=== PATIENT | female | born 1985 | race Caucasian/White ===

== ENCOUNTER 2022-11-15 00:11 | Inpatient (IN) | payer OTHER, SELFPAY ==
[2022-11-15 00:25] VITALS: BP 122/78; PULSE 88; RESP 18; TEMP 36.2; O2SAT 100
[2022-11-15 00:38] VITALS: BMI 22.7
[2022-11-15] MEDS: traZODone HCL 50 MG TABLET PO (00:47)
[2022-11-15] MEDS: hydrOXYzine HCL 25 MG TABLET PO ×2 (00:47→09:21)
[2022-11-15] MEDS: Acetaminophen 325 MG TABLET 650 MG PO ×2 (00:48→22:02)
[2022-11-15] MEDS: Ondansetron ODT 4 MG TAB.RAPDIS TRANSLINGU (01:04)
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
[2022-11-15] MEDS: LORazepam 1 MG TABLET 2 MG PO (09:44)
[2022-11-15 09:46] VITALS: BP 118/65; PULSE 90; RESP 16
[2022-11-15] MEDS: Amphetamine Mixed Salts 10 MG TABLET 30 MG PO ×3 (10:04→20:14)
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
[2022-11-15] MEDS: Cyclobenzaprine HCl 5 MG TABLET PO ×2 (14:38→20:00)
[2022-11-15] MEDS: Thiamine HCL 100 MG TABLET PO (14:38)
[2022-11-15] MEDS: traZODone HCL 100 MG TABLET PO (20:00)
[2022-11-15 20:19] VITALS: BP 132/88; PULSE 109; RESP 16; TEMP 36.4; O2SAT 98
[2022-11-15] MEDS: diphenhydrAMINE HCL 25 MG CAPSULE 50 MG PO (22:01)
[2022-11-15] MEDS: LORazepam 1 MG TABLET PO (22:59)
[2022-11-15] MEDS: HaloperidoL 1 MG TABLET 2 MG PO (22:59)
--- NOTE | 2022-11-16 | ECG_ITS ---
Test Reason : RAPID RESPONCE Blood Pressure : / mmHG Vent. Rate : 104 BPM Atrial Rate : 104 BPM P-R Int : 140 ms QRS Dur : 078 ms QT Int : 346 ms P-R-T Axes : 075 084 063 degrees QTc Int : 454 ms Sinus tachycardia Nonspecific ST abnormality Abnormal ECG No previous ECGs available Referred By: Ashtyn Salas Electronically Signed By:RODRIGUEZ SCHROEDER
[2022-11-16] MEDS: hydrOXYzine HCL 25 MG TABLET PO ×2 (06:16→21:48)
[2022-11-16 07:00] VITALS: BMI 22.7
[2022-11-16] MEDS: Loratadine 10 MG TABLET PO (08:00)
[2022-11-16] MEDS: Acetaminophen 325 MG TABLET 650 MG PO (08:00)
[2022-11-16] MEDS: Folic Acid 1 MG TABLET PO (08:00)
[2022-11-16] MEDS: Amphetamine Mixed Salts 10 MG TABLET 30 MG PO ×3 (08:00→16:03)
[2022-11-16] MEDS: Multivitamin TABLET 1 TAB PO (08:00)
[2022-11-16] MEDS: Naltrexone HCl 50 MG TABLET PO (08:00)
[2022-11-16] MEDS: Magnesium Oxide 400 MG TABLET PO (08:00)
[2022-11-16] MEDS: predniSONE 10 MG TABLET PO (08:00)
[2022-11-16] MEDS: Thiamine HCL 100 MG TABLET PO (08:00)
[2022-11-16] MEDS: Ondansetron ODT 8 MG TAB.RAPDIS TRANSLINGU ×2 (08:04→21:48)
[2022-11-16 08:15] VITALS: BP 117/91; PULSE 111; RESP 18; TEMP 36.3; O2SAT 95
[2022-11-16 08:58] LABS: Estimated Average Glucose 85 mg/dL; Hemoglobin A1c % 4.6 % (<6.0)
[2022-11-16 09:09] LABS: Alanine Aminotransferase 9 U/L (0-31); Albumin Level 4.5 g/dL (3.5-5.0); Alkaline Phosphatase 60 U/L (39-117); Anion Gap 15 (12-20); Aspartate Amino Transferase 14 U/L (5-31); Bilirubin Total 0.9 mg/dL (0.0-1.0); Blood Urea Nitrogen 10 mg/dL (9-16); Calcium 9.7 mg/dL (8.4-10.2); Carbon Dioxide 24 mmol/L (22-29); Chloride 103 mmol/L (96-108); Cholesterol 201 mg/dL (<200); Creatinine Clr Calc Pharmacy 105.5; Estimated Glomerular Filt Rate > 60; Glucose Fasting 77 mg/dL (60-99); HDL Cholesterol 91 mg/dL (>40); LDL Cholesterol Calculated 86 mg/dL (<100); Potassium 3.7 mmol/L (3.3-5.1); Sodium 138 mmol/L (135-145); Total Protein 7.4 g/dL (6.5-8.0); Triglycerides 121 mg/dL (<150)
[2022-11-16 09:27] LABS: Thyroid Stimulating Hormone 0.93 uIU/mL (0.32-4.0)
--- NOTE | 2022-11-16 09:31 | HE.PHANOTE ---
Pharmacy received patient own milk thistle that 08/01. I discontinued order so RN can not give the medication until pharmacy reicves a new bottle with an appropriate expiration date. Sent bottle back to floor so patient can have their purchased bottle back but RN know she should not give it.
[2022-11-16 09:37] LABS: Folate 13.4 ng/mL (> or = 4.0); Vitamin B12 350 pg/mL (200-900)
[2022-11-16] MEDS: LORazepam 1 MG TABLET PO ×2 (11:00→21:47)
--- NOTE | 2022-11-16 18:41 | P.PNPSI_ITS ---
Subjective Subjective Date of Service: 11/16/22 Reason For Visit: F33.3,F10.20,F43.10, F41.9 Subjective Notes: Conditional Voluntary Healthcare Proxy: No Guardianship: No Medical Problems Affecting Mental Status: No Interim History: Three day notice filed. I always do, in case it gets bad. Working on resources today, calling programs, agencies, attempting to set up services. Agrees to tw calling [facility] to see if she is appropriate for addiction residential care. Feeling safety in the milieu she reports. Medication Compliance: Yes Side effects from medications: No Review of Systems Acute medical concerns: No Medical Review of Systems: unchanged Mental Status Exam Mental Status Exam Patient Appearance: Appropriate Patient Orientation: Person, Place, Time and Situation Level of Consciousness: Alert Patient Behavior: Appropriate, Talkative and Good Eye Contact Mood Description: Anxious and Apprehensive Affect Description: Anxious and Apprehensive Patient Cognition Impaired: No Ability to Follow Directions: Fair Speech Pattern: Spontaneous Speech Memory Description: Intact Hallucinations: None Delusions: Not Present Perceptual Disturbances: Depersonalization and Derealization Thought Process: Goal Oriented Thought Content: positive for Circumstantial Depressive Symptoms: Increased Anxiety, Unhappiness, Thoughts of /Suicide and Low Self Esteem Judgement: Fair Diagnostics Vital Signs (24Hr): Vital Signs - 24 hr 11/15/22 20:19 11/16/22 08:15 Temperature 97.6 F 97.4 F Pulse Rate 109 H 111 H Respiratory Rate 16 18 Blood Pressure 132/88 117/91 H Pulse Oximetry 98 95 Oxygen Delivery Method Room Air Room Air BMI result Body Mass Index 22.7 Labs 11/16/22 08:17 Labs: Laboratory Results - last 48 hr 11/16/22 11/16/22 08:17 08:39 Sodium 138 Potassium 3.7 Chloride 103 Carbon Dioxide 24 Anion Gap 15 BUN 10 Creatinine 0.69 Estim Creat Clear Calc 105.5 Estimated GFR > 60 Fasting Glucose 77 Estimat Average Glucose 85 Hemoglobin A1c % 4.6 Calcium 9.7 Total Bilirubin 0.9 AST 14 ALT 9 Alkaline Phosphatase 60 Total Protein 7.4 Albumin 4.5 Triglycerides 121 Cholesterol 201 H LDL Cholesterol, Calc 86 HDL Cholesterol 91 Vitamin B12 350 Folate 13.4 TSH 0.93 Free T4 0.90 Medications Medications Current Medications Acetaminophen (Acetaminophen 325 Mg Tablet) 650 mg PO Q6H PRN PRN Reason: Headache/Pain Mild Scale (1-3) Last Admin: 11/16/22 08:00 Dose: 650 mg Al Hydroxide/Mg Hydroxide (Magnesium Hydrox/Alum Hydrox 30 Ml Oral.Susp) 30 ml PO Q6H PRN PRN Reason: Heartburn/Nausea Amphetamine/Dextroamphetamine (Amphetamine Mixed Salts 10 Mg Tablet) 30 mg PO TID@0800,1200,1600 [facility] Last Admin: 11/16/22 16:03 Dose: 30 mg Cyclobenzaprine HCl (Cyclobenzaprine Hcl 5 Mg Tablet) 5 mg PO TID [facility] Last Admin: 11/16/22 14:08 Dose: Not Given Diphenhydramine HCl (Diphenhydramine Hcl 25 Mg Capsule) 50 mg PO BEDTIME PRN PRN Reason: Insomnia Last Admin: 11/15/22 22:01 Dose: 50 mg Folic Acid (Folic Acid 1 Mg Tablet) 1 mg PO DAILY [facility] Last Admin: 11/16/22 08:00 Dose: 1 mg Haloperidol (Haloperidol 1 Mg Tablet) 2 mg PO BID PRN PRN Reason: agitation Last Admin: 11/15/22 22:59 Dose: 2 mg Hydroxyzine HCl (Hydroxyzine Hcl 25 Mg Tablet) 25 mg PO Q6H PRN PRN Reason: Anxiety Last Admin: 11/16/22 06:16 Dose: 25 mg Loratadine (Loratadine 10 Mg Tablet) 10 mg PO DAILY [facility] Last Admin: 11/16/22 08:00 Dose: 10 mg Lorazepam (Lorazepam 1 Mg Tablet) 1 mg PO TID PRN PRN Reason: anxiety Last Admin: 11/16/22 11:00 Dose: 1 mg Magnesium Hydroxide (Milk Of Magnesia 30 Ml Oral.Susp) 30 ml PO DAILY PRN PRN Reason: Constipation Magnesium Oxide (Magnesium Oxide 400 Mg Tablet) 400 mg PO DAILY [facility] Last Admin: 11/16/22 08:00 Dose: 400 mg Multivitamins/Vitamin C (Multivitamin Tablet) 1 tab PO DAILY [facility] Last Admin: 11/16/22 08:00 Dose: 1 tab Naltrexone HCl (Naltrexone Hcl 50 Mg Tablet) 50 mg PO DAILY [facility] Last Admin: 11/16/22 08:00 Dose: 50 mg Pt Own (Excedrin (Migraine)) 2 tab PO DAILY PRN PRN Reason: migraine Last Admin: 11/16/22 16:01 Dose: 2 tab Ondansetron HCl (Ondansetron Odt 8 Mg Tab.Rapdis) 8 mg TRANSLINGU Q12H PRN PRN Reason: Nausea Last Admin: 11/16/22 08:04 Dose: 8 mg Prednisone (Prednisone 10 Mg Tablet) 10 mg PO DAILY [facility] Last Admin: 11/16/22 08:00 Dose: 10 mg Thiamine HCl (Thiamine Hcl 100 Mg Tablet) 100 mg PO DAILY [facility] Last Admin: 11/16/22 08:00 Dose: 100 mg Trazodone HCl (Trazodone Hcl 100 Mg Tablet) 100 mg PO BEDTIME [facility] Last Admin: 11/15/22 20:00 Dose: 100 mg Allergies Allergies Allergy/AdvReac Type Severity Reaction Status Date / Time No Known Allergies Allergy Verified 11/15/22 01:16 Assessment & Plan Assessment & Plan (1) PTSD (post-traumatic stress disorder): Status: Acute Code(s): F43.10 - Post-traumatic stress disorder, unspecified (2) Recurrent major depression-severe: Status: Acute Code(s): F33.2 - Major depressive disorder, recurrent severe without psychotic features (3) Alcohol use disorder, severe, dependence: Status: Acute Code(s): F10.20 - Alcohol dependence, uncomplicated Plan 37 yo female, history of PTSD, recurrent major depression, ADHD, alcohol use disorder, s/p use of rubbing alcohol in a questionable suicide attempt after she and boyfriend had been living in his truck for a few weeks. Long hx of alcohol dependence, recent discharge after Section 35. Plan: TSH, B12, Folate Lipid panel, A1C Continue current regime Referral to fdc treatment if possible. Pt is in agreement. She reports family will be able to fund this for her. 11/16/22 Continue current plan and regime. Informed Consent: understands Reason for continued inpatient stay Substantial Risk for: rapid decompensation Time Spent With Patient Time: Total time managing care of this patient today ____ minutes.
[2022-11-16] MEDS: HaloperidoL 1 MG TABLET 2 MG PO (18:51)
[2022-11-16] MEDS: traZODone HCL 100 MG TABLET PO (20:59)
[2022-11-16] MEDS: diphenhydrAMINE HCL 25 MG CAPSULE 50 MG PO (21:00)
[2022-11-16] MEDS: Cyclobenzaprine HCl 5 MG TABLET PO (21:00)
--- NOTE | 2022-11-16 21:56 | PM.EVENT ---
Event Note Date of Service: 11/16/22 Event Note: A rapid response was called as patient was feeling tachycardic and feeling dizzy. On my arrival to the rapid response patient was laying on the floor with her eyes closed but awake alert talking. She appeared very anxious. States that at [facility] before coming in to [facility] patient was evaluated and found to be tachycardic and started on metoprolol 12.5 t.i.d. which she has not received since being admitted. Patient reports that she needs this medication that is the only medication that controlled her heart rate as well as her blood pressure. Her blood pressure was found to be in the 150s over 102. All other findings were negative. Patient is heart rate ranging from 120s to 130s. On my exam is seemed regular. Will obtain EKG, start her on metoprolol 12.5. TSH was reviewed which was normal. At this time patient will remain at the [facility] level. Will start on metoprolol, an EKG is obtained. Time Spent With Patient Time: Total time managing care of this patient today ____ minutes.
[2022-11-16 21:58] LABS: Glucose, Whole Blood 128 mg/dL (60-115)
[2022-11-16 22:30] VITALS: BP 120/74; PULSE 100; TEMP 37
[2022-11-16] MEDS: Metoprolol Tartrate 12.5 MG HALFTAB PO (22:32)
[2022-11-17] MEDS: Acetaminophen 325 MG TABLET 650 MG PO (05:15)
[2022-11-17 08:10] VITALS: BP 124/75; PULSE 111; RESP 18; TEMP 36.3; O2SAT 100
[2022-11-17] MEDS: Metoprolol Tartrate 12.5 MG HALFTAB PO ×3 (08:12→19:59)
[2022-11-17] MEDS: Thiamine HCL 100 MG TABLET PO (08:12)
[2022-11-17] MEDS: Amphetamine Mixed Salts 10 MG TABLET 30 MG PO ×2 (08:12→11:54)
[2022-11-17] MEDS: Naltrexone HCl 50 MG TABLET PO (08:12)
[2022-11-17] MEDS: Folic Acid 1 MG TABLET PO (08:12)
[2022-11-17] MEDS: Loratadine 10 MG TABLET PO (08:12)
[2022-11-17] MEDS: Multivitamin TABLET 1 TAB PO (08:12)
[2022-11-17] MEDS: Magnesium Oxide 400 MG TABLET PO (08:12)
[2022-11-17] MEDS: predniSONE 10 MG TABLET PO (08:12)
--- NOTE | 2022-11-17 09:24 | HE.PHANOTE ---
Re: pt own milk thistle New bottle of non- milk thistle brought in by pt. Labeled and sent to floor.
[2022-11-17 14:24] VITALS: BP 129/89; PULSE 99
[2022-11-17] MEDS: Amphetamine Mixed Salts 10 MG TABLET PO (16:14)
[2022-11-17] MEDS: Amphetamine Mixed Salts 20 MG TABLET PO (16:14)
[2022-11-17] MEDS: Lidocaine 4 % Patch ADH..PATCH 1 PATCH TRANSDERMA (17:46)
--- NOTE | 2022-11-17 18:18 | MHC.RECOVRN ---
This health underwriter met with patient after addiction consult was placed. Pt admitted for drinking rubbing ETOH. Pt reports long chaotic hx of ETOH use. Pt reports drinking ETOH since age 17. Patient states has been through all levels of treatment, ATS, CSS, Section 35 multiple times. Pt reports has tried Naltrexone, REINIER INJ, campral, Antebuse, with no positive effect. Pt reports historically drank 3 sleeves nightly of 100 proof vodka. Pt reports decreased drinking to 5 nips per day and then became extremely depressed. Reviewed recovery supports. Pt extremely knowledgeable in harm reduction, recovery supports. Pt reports has 2 sponsors. Pt reports plans to follow up with [facility] in [place] to further explore BUP INJ for ETOH use.
--- NOTE | 2022-11-17 18:48 | P.PNPSI_ITS ---
Subjective Subjective Date of Service: 11/17/22 Reason For Visit: F33.3,F10.20,F43.10, F41.9 Subjective Notes: Conditional Voluntary Healthcare Proxy: No Guardianship: No Medical Problems Affecting Mental Status: No Interim History: TDN to 11/20. Rapid response call last evening due to elevation in BP. Metoprolol restarted. This was started recently at [facility] however not on file with her pharmacy and [facility] could not verify when we called. Pt reports she knows providers at this facility and was able to call. Reports feeling improved with this in place. Calls out to [facility] addiction services. Pt making plans to go to [facility] next week. She has interest in [place] and will plan to ask to [facility] until this option can be checked into for availability. Several utilization review questions from insurance as pt's case is not straighforward. Pt reports/responds... 1. Med Trials: all of them . Buspirone, Trileptal, Lamictal, Olanzapine, Trazodone, Prazosin, Lexapro, Wellbutrin, Haldol, Chlorpromazine, SSRI's, Ambien, Gabapentin, Ativan. Uses stimulant for ADD and Trazodone prn. 2.Currently not on any medication for mood per pt choice. Discussed the treatment she has had over the years and prescribing with Dr. Colby Glynn of [facility]. She has been advised she reports by VEHICLE OPERATOR TECHNICIAN former therapist and clinicians she has worked with in [place] with her Section 35 admission that psychotherapy/pharmacology for mood is not a good plan for her. EMDR is recommended and she is in pursuit of this along with groups. She also will not allow prescribing by anyone who does not know her well. She believes she has sx of OCD but does not want to treat this with medicine. She would like to trial EMDR first. 3. Stimulant hx-reports several years of use, given by PCP. Vyvanse trial by Henny Russell in July 2022, Last amphetamine trial by Bryanna Orosco of [place], October 2022. Medication Compliance: Yes Side effects from medications: No Attending Groups: Intermittent Review of Systems Acute medical concerns: No Medical Review of Systems: unchanged Mental Status Exam Mental Status Exam Patient Appearance: Appropriate Patient Orientation: Person, Place, Time and Situation Level of Consciousness: Alert Patient Behavior: Appropriate, Talkative and Good Eye Contact Mood Description: Anxious and Apprehensive Affect Description: Anxious and Apprehensive Patient Cognition Impaired: No Ability to Follow Directions: Fair Speech Pattern: Spontaneous Speech Memory Description: Intact Hallucinations: None Delusions: Not Present Perceptual Disturbances: Depersonalization and Derealization Thought Process: Goal Oriented Thought Content: positive for Circumstantial Depressive Symptoms: Increased Anxiety, Unhappiness, Thoughts of /Suicide (denies) and Low Self Esteem Judgement: Fair Diagnostics Vital Signs (24Hr): Vital Signs - 24 hr 11/16/22 22:30 11/17/22 08:10 11/17/22 14:24 Temperature 98.6 F 97.3 F Pulse Rate 100 111 H 99 Respiratory Rate 18 Blood Pressure 120/74 124/75 129/89 Pulse Oximetry 100 Oxygen Delivery Method Room Air BMI result Body Mass Index 22.7 Labs 11/16/22 08:17 Labs: Laboratory Results - last 48 hr 11/16/22 11/16/22 11/16/22 08:17 08:39 21:46 Sodium 138 Potassium 3.7 Chloride 103 Carbon Dioxide 24 Anion Gap 15 BUN 10 Creatinine 0.69 Estim Creat Clear Calc 105.5 Estimated GFR > 60 POC Glucose 128 H Fasting Glucose 77 Estimat Average Glucose 85 Hemoglobin A1c % 4.6 Calcium 9.7 Total Bilirubin 0.9 AST 14 ALT 9 Alkaline Phosphatase 60 Total Protein 7.4 Albumin 4.5 Triglycerides 121 Cholesterol 201 H LDL Cholesterol, Calc 86 HDL Cholesterol 91 Vitamin B12 350 Folate 13.4 TSH 0.93 Free T4 0.90 Medications Medications Current Medications Acetaminophen (Acetaminophen 325 Mg Tablet) 650 mg PO Q6H PRN PRN Reason: Headache/Pain Mild Scale (1-3) Last Admin: 11/17/22 05:15 Dose: 650 mg Al Hydroxide/Mg Hydroxide (Magnesium Hydrox/Alum Hydrox 30 Ml Oral.Susp) 30 ml PO Q6H PRN PRN Reason: Heartburn/Nausea Amphetamine/Dextroamphetamine (Amphetamine Mixed Salts 20 Mg Tablet) 20 mg PO TID@0800,1200,1600 [facility] Last Admin: 11/17/22 16:14 Dose: 20 mg Amphetamine/Dextroamphetamine (Amphetamine Mixed Salts 10 Mg Tablet) 10 mg PO TID@0800,1200,1600 [facility] Last Admin: 11/17/22 16:14 Dose: 10 mg Cyclobenzaprine HCl (Cyclobenzaprine Hcl 5 Mg Tablet) 5 mg PO TID [facility] Last Admin: 11/17/22 14:23 Dose: Not Given Diphenhydramine HCl (Diphenhydramine Hcl 25 Mg Capsule) 50 mg PO BEDTIME PRN PRN Reason: Insomnia Last Admin: 11/16/22 21:00 Dose: 50 mg Folic Acid (Folic Acid 1 Mg Tablet) 1 mg PO DAILY [facility] Last Admin: 11/17/22 08:12 Dose: 1 mg Haloperidol (Haloperidol 1 Mg Tablet) 2 mg PO BID PRN PRN Reason: agitation Last Admin: 11/16/22 18:51 Dose: 2 mg Hydroxyzine HCl (Hydroxyzine Hcl 25 Mg Tablet) 25 mg PO Q6H PRN PRN Reason: Anxiety Last Admin: 11/16/22 21:48 Dose: 25 mg Lidocaine (Lidocaine 4 % Patch Adh..Patch) 1 patch TRANSDERMA DAILY [facility]; Protocol Last Admin: 11/17/22 17:46 Dose: 1 patch Loratadine (Loratadine 10 Mg Tablet) 10 mg PO DAILY [facility] Last Admin: 11/17/22 08:12 Dose: 10 mg Lorazepam (Lorazepam 1 Mg Tablet) 1 mg PO TID PRN PRN Reason: anxiety Last Admin: 11/16/22 21:47 Dose: 1 mg Magnesium Hydroxide (Milk Of Magnesia 30 Ml Oral.Susp) 30 ml PO DAILY PRN PRN Reason: Constipation Magnesium Oxide (Magnesium Oxide 400 Mg Tablet) 400 mg PO DAILY [facility] Last Admin: 11/17/22 08:12 Dose: 400 mg Metoprolol Tartrate (Metoprolol Tartrate 12.5 Mg Halftab) 12.5 mg PO TID [facility]; Protocol Last Admin: 11/17/22 14:23 Dose: 12.5 mg Multivitamins/Vitamin C (Multivitamin Tablet) 1 tab PO DAILY [facility] Last Admin: 11/17/22 08:12 Dose: 1 tab Naltrexone HCl (Naltrexone Hcl 50 Mg Tablet) 50 mg PO DAILY [facility] Last Admin: 11/17/22 08:12 Dose: 50 mg Pt Own (Excedrin (Migraine)) 2 tab PO DAILY PRN PRN Reason: migraine Last Admin: 11/16/22 16:01 Dose: 2 tab Pt Own (Milk Thistle (250 Mg Capsule)) 250 mg PO BID [facility] Last Admin: 11/17/22 10:46 Dose: 250 mg Ondansetron HCl (Ondansetron Odt 8 Mg Tab.Rapdis) 8 mg TRANSLINGU Q12H PRN PRN Reason: Nausea Last Admin: 11/16/22 21:48 Dose: 8 mg Prednisone (Prednisone 10 Mg Tablet) 10 mg PO DAILY [facility] Last Admin: 11/17/22 08:12 Dose: 10 mg Thiamine HCl (Thiamine Hcl 100 Mg Tablet) 100 mg PO DAILY [facility] Last Admin: 11/17/22 08:12 Dose: 100 mg Trazodone HCl (Trazodone Hcl 100 Mg Tablet) 100 mg PO BEDTIME [facility] Last Admin: 11/16/22 20:59 Dose: 100 mg Allergies Allergies Allergy/AdvReac Type Severity Reaction Status Date / Time No Known Allergies Allergy Verified 11/15/22 01:16 Assessment & Plan Assessment & Plan (1) PTSD (post-traumatic stress disorder): Status: Acute Code(s): F43.10 - Post-traumatic stress disorder, unspecified (2) Recurrent major depression-severe: Status: Acute Code(s): F33.2 - Major depressive disorder, recurrent severe without psychotic features (3) Alcohol use disorder, severe, dependence: Status: Acute Code(s): F10.20 - Alcohol dependence, uncomplicated Plan 37 yo female, history of PTSD, recurrent major depression, ADHD, alcohol use disorder, s/p use of rubbing alcohol in a questionable suicide attempt after she and boyfriend had been living in his truck for a few weeks. Long hx of alcohol dependence, recent discharge after Section 35. Plan: TSH, B12, Folate Lipid panel, A1C Continue current regime Referral to assisted treatment if possible. Pt is in agreement. She reports family will be able to fund this for her. 11/16/22 Continue current plan and regime. 11/17/22 Continue current plan and regime. Patient educated on: medication risk/benefits Informed Consent: understands Reason for continued inpatient stay Substantial Risk for: rapid decompensation Time Spent With Patient Time: Total time managing care of this patient today ____ minutes.
[2022-11-17 19:55] VITALS: BP 137/94; PULSE 95; TEMP 35.9
[2022-11-17] MEDS: Cyclobenzaprine HCl 5 MG TABLET PO (19:58)
[2022-11-17] MEDS: traZODone HCL 100 MG TABLET PO (19:59)
[2022-11-17] MEDS: diphenhydrAMINE HCL 25 MG CAPSULE 50 MG PO (20:00)
[2022-11-17] MEDS: HaloperidoL 1 MG TABLET 2 MG PO (20:05)
[2022-11-17] MEDS: LORazepam 1 MG TABLET PO (22:30)
[2022-11-18 08:25] VITALS: BP 133/71; PULSE 118; RESP 18; TEMP 36.2; O2SAT 100
[2022-11-18] MEDS: Acetaminophen 325 MG TABLET 650 MG PO (08:39)
[2022-11-18] MEDS: Thiamine HCL 100 MG TABLET PO (08:40)
[2022-11-18] MEDS: Folic Acid 1 MG TABLET PO (08:40)
[2022-11-18] MEDS: Amphetamine Mixed Salts 20 MG TABLET PO ×3 (08:40→16:29)
[2022-11-18] MEDS: Naltrexone HCl 50 MG TABLET PO (08:40)
[2022-11-18] MEDS: Multivitamin TABLET 1 TAB PO (08:40)
[2022-11-18] MEDS: predniSONE 10 MG TABLET PO (08:40)
[2022-11-18] MEDS: Amphetamine Mixed Salts 10 MG TABLET PO ×3 (08:40→16:28)
[2022-11-18] MEDS: Magnesium Oxide 400 MG TABLET PO (08:40)
[2022-11-18] MEDS: Metoprolol Tartrate 12.5 MG HALFTAB PO ×3 (08:40→20:21)
[2022-11-18] MEDS: Loratadine 10 MG TABLET PO (08:40)
--- NOTE | 2022-11-18 08:44 | P.PNPSI_ITS ---
Subjective Subjective Date of Service: 11/18/22 Reason For Visit: F33.3,F10.20,F43.10, F41.9 Subjective Notes: Conditional Voluntary Healthcare Proxy: No Guardianship: No Medical Problems Affecting Mental Status: No Interim History: Visable in milieu, interactive with peers, working on resources for herself and organizing what she needs to do to return to the community. Attending groups. TDN on file. Medication Compliance: Yes Side effects from medications: No Attending Groups: Yes Review of Systems Acute medical concerns: No Medical Review of Systems: unchanged Mental Status Exam Mental Status Exam Patient Appearance: Appropriate Patient Orientation: Person, Place, Time and Situation Level of Consciousness: Alert Patient Behavior: Appropriate, Talkative and Good Eye Contact Mood Description: Anxious and Apprehensive Affect Description: Anxious and Apprehensive Patient Cognition Impaired: No Ability to Follow Directions: Fair Speech Pattern: Spontaneous Speech Memory Description: Intact Hallucinations: None Delusions: Not Present Perceptual Disturbances: Depersonalization and Derealization Thought Process: Goal Oriented Thought Content: positive for Circumstantial Depressive Symptoms: Increased Anxiety, Unhappiness, Thoughts of /Suicide (denies) and Low Self Esteem Judgement: Fair Diagnostics Vital Signs (24Hr): Vital Signs - 24 hr 11/17/22 14:24 11/17/22 19:55 Temperature 96.6 F L Pulse Rate 99 95 Blood Pressure 129/89 137/94 H BMI result Body Mass Index 22.7 Labs 11/16/22 08:17 Labs: Laboratory Results - last 48 hr 11/16/22 11/16/22 11/16/22 08:17 08:39 21:46 Sodium 138 Potassium 3.7 Chloride 103 Carbon Dioxide 24 Anion Gap 15 BUN 10 Creatinine 0.69 Estim Creat Clear Calc 105.5 Estimated GFR > 60 POC Glucose 128 H Fasting Glucose 77 Estimat Average Glucose 85 Hemoglobin A1c % 4.6 Calcium 9.7 Total Bilirubin 0.9 AST 14 ALT 9 Alkaline Phosphatase 60 Total Protein 7.4 Albumin 4.5 Triglycerides 121 Cholesterol 201 H LDL Cholesterol, Calc 86 HDL Cholesterol 91 Vitamin B12 350 Folate 13.4 TSH 0.93 Free T4 0.90 Medications Medications Current Medications Acetaminophen (Acetaminophen 325 Mg Tablet) 650 mg PO Q6H PRN PRN Reason: Headache/Pain Mild Scale (1-3) Last Admin: 11/18/22 08:39 Dose: 650 mg Al Hydroxide/Mg Hydroxide (Magnesium Hydrox/Alum Hydrox 30 Ml Oral.Susp) 30 ml PO Q6H PRN PRN Reason: Heartburn/Nausea Amphetamine/Dextroamphetamine (Amphetamine Mixed Salts 20 Mg Tablet) 20 mg PO TID@0800,1200,1600 [facility] Last Admin: 11/18/22 08:40 Dose: 20 mg Amphetamine/Dextroamphetamine (Amphetamine Mixed Salts 10 Mg Tablet) 10 mg PO TID@0800,1200,1600 [facility] Last Admin: 11/18/22 08:40 Dose: 10 mg Cyclobenzaprine HCl (Cyclobenzaprine Hcl 5 Mg Tablet) 5 mg PO TID [facility] Last Admin: 11/18/22 08:39 Dose: Not Given Diphenhydramine HCl (Diphenhydramine Hcl 25 Mg Capsule) 50 mg PO BEDTIME PRN PRN Reason: Insomnia Last Admin: 11/17/22 20:00 Dose: 50 mg Folic Acid (Folic Acid 1 Mg Tablet) 1 mg PO DAILY [facility] Last Admin: 11/18/22 08:40 Dose: 1 mg Haloperidol (Haloperidol 1 Mg Tablet) 2 mg PO BID PRN PRN Reason: agitation Last Admin: 11/17/22 20:05 Dose: 2 mg Hydroxyzine HCl (Hydroxyzine Hcl 25 Mg Tablet) 25 mg PO Q6H PRN PRN Reason: Anxiety Last Admin: 11/16/22 21:48 Dose: 25 mg Lidocaine (Lidocaine 4 % Patch Adh..Patch) 1 patch TRANSDERMA DAILY [facility]; Protocol Last Admin: 11/18/22 08:44 Dose: Not Given Loratadine (Loratadine 10 Mg Tablet) 10 mg PO DAILY [facility] Last Admin: 11/18/22 08:40 Dose: 10 mg Lorazepam (Lorazepam 1 Mg Tablet) 1 mg PO TID PRN PRN Reason: anxiety Last Admin: 11/17/22 22:30 Dose: 1 mg Magnesium Hydroxide (Milk Of Magnesia 30 Ml Oral.Susp) 30 ml PO DAILY PRN PRN Reason: Constipation Magnesium Oxide (Magnesium Oxide 400 Mg Tablet) 400 mg PO DAILY [facility] Last Admin: 11/18/22 08:40 Dose: 400 mg Metoprolol Tartrate (Metoprolol Tartrate 12.5 Mg Halftab) 12.5 mg PO TID [facility]; Protocol Last Admin: 11/18/22 08:40 Dose: 12.5 mg Multivitamins/Vitamin C (Multivitamin Tablet) 1 tab PO DAILY [facility] Last Admin: 11/18/22 08:40 Dose: 1 tab Naltrexone HCl (Naltrexone Hcl 50 Mg Tablet) 50 mg PO DAILY [facility] Last Admin: 11/18/22 08:40 Dose: 50 mg Pt Own (Excedrin (Migraine)) 2 tab PO DAILY PRN PRN Reason: migraine Last Admin: 11/16/22 16:01 Dose: 2 tab Pt Own (Milk Thistle (250 Mg Capsule)) 250 mg PO BID [facility] Last Admin: 11/17/22 22:00 Dose: Not Given Ondansetron HCl (Ondansetron Odt 8 Mg Tab.Rapdis) 8 mg TRANSLINGU Q12H PRN PRN Reason: Nausea Last Admin: 11/16/22 21:48 Dose: 8 mg Prednisone (Prednisone 10 Mg Tablet) 10 mg PO DAILY [facility] Last Admin: 11/18/22 08:40 Dose: 10 mg Thiamine HCl (Thiamine Hcl 100 Mg Tablet) 100 mg PO DAILY [facility] Last Admin: 11/18/22 08:40 Dose: 100 mg Trazodone HCl (Trazodone Hcl 100 Mg Tablet) 100 mg PO BEDTIME [facility] Last Admin: 11/17/22 19:59 Dose: 100 mg Allergies Allergies Allergy/AdvReac Type Severity Reaction Status Date / Time No Known Allergies Allergy Verified 11/15/22 01:16 Assessment & Plan Assessment & Plan (1) PTSD (post-traumatic stress disorder): Status: Acute Code(s): F43.10 - Post-traumatic stress disorder, unspecified (2) Recurrent major depression-severe: Status: Acute Code(s): F33.2 - Major depressive disorder, recurrent severe without psychotic features (3) Alcohol use disorder, severe, dependence: Status: Acute Code(s): F10.20 - Alcohol dependence, uncomplicated Plan 37 yo female, history of PTSD, recurrent major depression, ADHD, alcohol use disorder, s/p use of rubbing alcohol in a questionable suicide attempt after she and boyfriend had been living in his truck for a few weeks. Long hx of alcohol dependence, recent discharge after Section 35. Plan: TSH, B12, Folate Lipid panel, A1C Continue current regime Referral to termite treater treatment if possible. Pt is in agreement. She reports family will be able to fund this for her. 11/16/22 Continue current plan and regime. 11/17/22 Continue current plan and regime. 11/18/22 Continue current plan and regime. Inquiry made to [facility] to disucss possiblity of attending their program post discharge Patient educated on: medication risk/benefits (prefers natural choices) and therapeutic strategies Informed Consent: understands Reason for continued inpatient stay Substantial Risk for: rapid decompensation Time Spent With Patient Time: Total time managing care of this patient today ____ minutes.
[2022-11-18 15:05] VITALS: BP 112/77; PULSE 92
[2022-11-18 18:00] VITALS: BP 119/80; PULSE 92; RESP 20; TEMP 36.4; O2SAT 99
[2022-11-18] MEDS: Cyclobenzaprine HCl 5 MG TABLET PO (20:20)
[2022-11-18] MEDS: Melatonin 3 MG TABLET 9 MG PO (20:21)
[2022-11-18] MEDS: LORazepam 1 MG TABLET PO (20:22)
[2022-11-18] MEDS: diphenhydrAMINE HCL 25 MG CAPSULE 50 MG PO (20:22)
[2022-11-18] MEDS: traZODone HCL 100 MG TABLET 200 MG PO (20:22)
--- NOTE | 2022-11-19 05:44 | HO.PSYCHPN ---
Subjective Subjective Date of Service: 11/19/22 Reason For Visit: F33.3,F10.20,F43.10, F41.9 Subjective Notes: Conditional Voluntary Healthcare Proxy: No Guardianship: No Medical Problems Affecting Mental Status: No Interim History: TDN in effect. Pt has applied to [facility]. She is making contacts for further treatment. Given [facility] information and she began calling today. Active with peers and in milieu. Organized, trying to put a life back together . Continues to decline further psychotropic med trials Medication Compliance: Yes Side effects from medications: No Attending Groups: Yes Review of Systems Acute medical concerns: No Medical Review of Systems: unchanged Mental Status Exam Mental Status Exam Patient Appearance: Appropriate Patient Orientation: Person, Place, Time and Situation Level of Consciousness: Alert Patient Behavior: Appropriate, Talkative and Good Eye Contact Mood Description: Anxious and Apprehensive Affect Description: Anxious and Apprehensive Patient Cognition Impaired: No Ability to Follow Directions: Fair Speech Pattern: Spontaneous Speech Memory Description: Intact Hallucinations: None Delusions: Not Present Perceptual Disturbances: Depersonalization and Derealization Thought Process: Goal Oriented Thought Content: positive for Circumstantial Depressive Symptoms: Increased Anxiety, Unhappiness, Thoughts of /Suicide (denies) and Low Self Esteem Judgement: Fair Diagnostics Vital Signs (24Hr): Vital Signs - 24 hr 11/18/22 08:25 11/18/22 15:05 11/18/22 18:00 Temperature 97.2 F 97.6 F Pulse Rate 118 H 92 92 Respiratory Rate 18 20 Blood Pressure 133/71 112/77 119/80 Pulse Oximetry 100 99 Oxygen Delivery Method Room Air Room Air BMI result Body Mass Index 22.7 Labs 11/16/22 08:17 Medications Medications Current Medications Acetaminophen (Acetaminophen 325 Mg Tablet) 650 mg PO Q6H PRN PRN Reason: Headache/Pain Mild Scale (1-3) Last Admin: 11/18/22 08:39 Dose: 650 mg Al Hydroxide/Mg Hydroxide (Magnesium Hydrox/Alum Hydrox 30 Ml Oral.Susp) 30 ml PO Q6H PRN PRN Reason: Heartburn/Nausea Amphetamine/Dextroamphetamine (Amphetamine Mixed Salts 20 Mg Tablet) 20 mg PO TID@0800,1200,1600 [facility] Last Admin: 11/18/22 16:29 Dose: 20 mg Amphetamine/Dextroamphetamine (Amphetamine Mixed Salts 10 Mg Tablet) 10 mg PO TID@0800,1200,1600 [facility] Last Admin: 11/18/22 16:28 Dose: 10 mg Cyclobenzaprine HCl (Cyclobenzaprine Hcl 5 Mg Tablet) 5 mg PO TID [facility] Last Admin: 11/18/22 20:20 Dose: 5 mg Diphenhydramine HCl (Diphenhydramine Hcl 25 Mg Capsule) 50 mg PO BEDTIME PRN PRN Reason: Insomnia Last Admin: 11/18/22 20:22 Dose: 50 mg Folic Acid (Folic Acid 1 Mg Tablet) 1 mg PO DAILY [facility] Last Admin: 11/18/22 08:40 Dose: 1 mg Haloperidol (Haloperidol 1 Mg Tablet) 2 mg PO BID PRN PRN Reason: agitation Last Admin: 11/17/22 20:05 Dose: 2 mg Hydroxyzine HCl (Hydroxyzine Hcl 25 Mg Tablet) 25 mg PO Q6H PRN PRN Reason: Anxiety Last Admin: 11/16/22 21:48 Dose: 25 mg Lidocaine (Lidocaine 4 % Patch Adh..Patch) 1 patch TRANSDERMA DAILY [facility]; Protocol Last Admin: 11/18/22 08:44 Dose: Not Given Loratadine (Loratadine 10 Mg Tablet) 10 mg PO DAILY [facility] Last Admin: 11/18/22 08:40 Dose: 10 mg Lorazepam (Lorazepam 1 Mg Tablet) 1 mg PO TID PRN PRN Reason: anxiety Last Admin: 11/18/22 20:22 Dose: 1 mg Magnesium Hydroxide (Milk Of Magnesia 30 Ml Oral.Susp) 30 ml PO DAILY PRN PRN Reason: Constipation Magnesium Oxide (Magnesium Oxide 400 Mg Tablet) 400 mg PO DAILY [facility] Last Admin: 11/18/22 08:40 Dose: 400 mg Melatonin (Melatonin 3 Mg Tablet) 9 mg PO BEDTIME [facility] Last Admin: 11/18/22 20:21 Dose: 9 mg Metoprolol Tartrate (Metoprolol Tartrate 12.5 Mg Halftab) 12.5 mg PO TID [facility]; Protocol Last Admin: 11/18/22 20:21 Dose: 12.5 mg Multivitamins/Vitamin C (Multivitamin Tablet) 1 tab PO DAILY [facility] Last Admin: 11/18/22 08:40 Dose: 1 tab Naltrexone HCl (Naltrexone Hcl 50 Mg Tablet) 50 mg PO DAILY [facility] Last Admin: 11/18/22 08:40 Dose: 50 mg Pt Own (Excedrin (Migraine)) 2 tab PO DAILY PRN PRN Reason: migraine Last Admin: 11/18/22 11:37 Dose: 2 tab Pt Own (Milk Thistle (250 Mg Capsule)) 250 mg PO BID [facility] Last Admin: 11/18/22 22:26 Dose: Not Given Ondansetron HCl (Ondansetron Odt 8 Mg Tab.Rapdis) 8 mg TRANSLINGU Q12H PRN PRN Reason: Nausea Last Admin: 11/16/22 21:48 Dose: 8 mg Prednisone (Prednisone 10 Mg Tablet) 10 mg PO DAILY [facility] Last Admin: 11/18/22 08:40 Dose: 10 mg Thiamine HCl (Thiamine Hcl 100 Mg Tablet) 100 mg PO DAILY [facility] Last Admin: 11/18/22 08:40 Dose: 100 mg Trazodone HCl (Trazodone Hcl 100 Mg Tablet) 200 mg PO BEDTIME [facility] Last Admin: 11/18/22 20:22 Dose: 200 mg Allergies Allergies Allergy/AdvReac Type Severity Reaction Status Date / Time No Known Allergies Allergy Verified 11/15/22 01:16 Assessment & Plan Assessment & Plan (1) PTSD (post-traumatic stress disorder): Status: Acute Code(s): F43.10 - Post-traumatic stress disorder, unspecified (2) Recurrent major depression-severe: Status: Acute Code(s): F33.2 - Major depressive disorder, recurrent severe without psychotic features (3) Alcohol use disorder, severe, dependence: Status: Acute Code(s): F10.20 - Alcohol dependence, uncomplicated Plan 37 yo female, history of PTSD, recurrent major depression, ADHD, alcohol use disorder, s/p use of rubbing alcohol in a questionable suicide attempt after she and boyfriend had been living in his truck for a few weeks. Long hx of alcohol dependence, recent discharge after Section 35. Plan: TSH, B12, Folate Lipid panel, A1C Continue current regime Referral to local intermodal truck driver treatment if possible. Pt is in agreement. She reports family will be able to fund this for her. 11/16/22 Continue current plan and regime. 11/17/22 Continue current plan and regime. 11/19/22 TDN in effect. Has applied to [facility] for admit. Looking at application to [facility] residential treatment and has initiated a call to them. Change Flexeril to prn Capsaicin prn Patient educated on: therapeutic strategies Informed Consent: understands Reason for continued inpatient stay Substantial Risk for: rapid decompensation Time Spent With Patient Time: Total time managing care of this patient today ____ minutes.
[2022-11-19 08:35] VITALS: BP 106/74; PULSE 103; RESP 16; TEMP 35.8; O2SAT 100
[2022-11-19] MEDS: Multivitamin TABLET 1 TAB PO (08:40)
[2022-11-19] MEDS: Amphetamine Mixed Salts 20 MG TABLET PO ×3 (08:40→15:02)
[2022-11-19] MEDS: Naltrexone HCl 50 MG TABLET PO (08:40)
[2022-11-19] MEDS: Amphetamine Mixed Salts 10 MG TABLET PO ×3 (08:40→15:02)
[2022-11-19] MEDS: Metoprolol Tartrate 12.5 MG HALFTAB PO ×3 (08:40→21:21)
[2022-11-19] MEDS: predniSONE 10 MG TABLET PO (08:40)
[2022-11-19] MEDS: Folic Acid 1 MG TABLET PO (08:41)
[2022-11-19] MEDS: Thiamine HCL 100 MG TABLET PO (08:41)
[2022-11-19] MEDS: Magnesium Oxide 400 MG TABLET PO (08:41)
[2022-11-19] MEDS: Loratadine 10 MG TABLET PO (08:41)
[2022-11-19 15:05] VITALS: BP 125/83; PULSE 100
[2022-11-19 16:27] VITALS: BP 125/76; PULSE 90; RESP 18; TEMP 36.1; O2SAT 100
[2022-11-19] MEDS: Melatonin 3 MG TABLET 9 MG PO (21:20)
[2022-11-19] MEDS: traZODone HCL 100 MG TABLET 200 MG PO (21:20)
[2022-11-19] MEDS: diphenhydrAMINE HCL 25 MG CAPSULE 50 MG PO (21:20)
[2022-11-19] MEDS: LORazepam 1 MG TABLET PO (21:21)
[2022-11-20] MEDS: LORazepam 1 MG TABLET PO ×2 (01:59→19:50)
[2022-11-20] MEDS: Acetaminophen 325 MG TABLET 650 MG PO (04:38)
[2022-11-20] MEDS: Cyclobenzaprine HCl 5 MG TABLET PO (04:38)
[2022-11-20] MEDS: Thiamine HCL 100 MG TABLET PO (08:36)
[2022-11-20] MEDS: Magnesium Oxide 400 MG TABLET PO (08:36)
[2022-11-20] MEDS: Folic Acid 1 MG TABLET PO (08:36)
[2022-11-20] MEDS: Loratadine 10 MG TABLET PO (08:36)
[2022-11-20] MEDS: Multivitamin TABLET 1 TAB PO (08:36)
[2022-11-20] MEDS: Naltrexone HCl 50 MG TABLET PO (08:36)
[2022-11-20] MEDS: predniSONE 10 MG TABLET PO (08:36)
[2022-11-20] MEDS: Amphetamine Mixed Salts 10 MG TABLET PO ×3 (08:37→16:04)
[2022-11-20] MEDS: Amphetamine Mixed Salts 20 MG TABLET PO ×3 (08:37→16:03)
[2022-11-20 08:50] VITALS: BP 119/58; PULSE 99; RESP 18; TEMP 36.5; O2SAT 100
--- NOTE | 2022-11-20 12:34 | P.PNPSI_ITS ---
Subjective Subjective Date of Service: 11/20/22 Reason For Visit: F33.3,F10.20,F43.10, F41.9 Subjective Notes: Conditional Voluntary and 3 Day Interim History: Pt reports sleeping through the night. She reports numbered of stressors at home, including need to find new housing, BF having legal issues. She denies SI/HI. No psychosis. She reports feeling better than when she came in. She reports she is calling different places to step down to respite. Per nursing, pt has been visible on the unit. She retracted 3 day and in agreement to work with SW to connect with step down program. Medication Compliance: Yes Review of Systems Review of Systems Yes all other systems are reviewed and are negative Constitutional: Reports no additional constitutional complaints Eyes: Reports no additional eye complaints Reports system reviewed and no additional complaints, except as documented Cardiovascular: Reports no additional cardiovascular complaints Respiratory: Reports no additional respiratory complaints Gastrointestinal: Reports no additional gastrointestinal complaints Musculoskeletal: Reports no additional musculoskeletal complaints Skin/Breast: Reports system reviewed and no additional complaints, except as docu Reports system reviewed and no additional complaints, except as documented Psychiatric: Reports anxiety, Reports depression and Reports suicidal ideation Endocrine: Reports no additional endocrine complaints Hematologic/Lymphatic: Reports no additional hematologic/lymphatic complaints Allergic/Immunologic: Reports no additional allergic/immunologic complaints Mental Status Exam Mental Status Exam Patient Appearance: Appropriate Patient Orientation: Person, Place, Time and Situation Level of Consciousness: Alert Patient Behavior: Appropriate, Talkative and Good Eye Contact Mood Description: Anxious and Apprehensive Affect Description: Anxious and Apprehensive Patient Cognition Impaired: No Ability to Follow Directions: Fair Speech Pattern: Spontaneous Speech Memory Description: Intact Diagnostics Vital Signs (24Hr): Vital Signs - 24 hr 11/19/22 15:05 11/19/22 16:27 11/20/22 08:50 Temperature 96.9 F 97.7 F Pulse Rate 100 90 99 Respiratory Rate 18 18 Blood Pressure 125/83 125/76 119/58 L Pulse Oximetry 100 100 Oxygen Delivery Method Room Air Room Air BMI result Body Mass Index 22.7 Labs 11/16/22 08:17 Medications Medications Current Medications Acetaminophen (Acetaminophen 325 Mg Tablet) 650 mg PO Q6H PRN PRN Reason: Headache/Pain Mild Scale (1-3) Last Admin: 11/20/22 04:38 Dose: 650 mg Al Hydroxide/Mg Hydroxide (Magnesium Hydrox/Alum Hydrox 30 Ml Oral.Susp) 30 ml PO Q6H PRN PRN Reason: Heartburn/Nausea Amphetamine/Dextroamphetamine (Amphetamine Mixed Salts 20 Mg Tablet) 20 mg PO TID@0800,1200,1600 [facility] Last Admin: 11/20/22 11:30 Dose: 20 mg Amphetamine/Dextroamphetamine (Amphetamine Mixed Salts 10 Mg Tablet) 10 mg PO TID@0800,1200,1600 [facility] Last Admin: 11/20/22 11:30 Dose: 10 mg Capsaicin (Capsaicin 0.025% Cream 60 Gm Tube) 1 appl TOPICAL QID PRN; Protocol PRN Reason: Pain, Mild (Pain Scale 1-3) Cyclobenzaprine HCl (Cyclobenzaprine Hcl 10 Mg Tablet) 10 mg PO TID PRN PRN Reason: spasm Diphenhydramine HCl (Diphenhydramine Hcl 25 Mg Capsule) 50 mg PO BEDTIME PRN PRN Reason: Insomnia Last Admin: 11/19/22 21:20 Dose: 50 mg Folic Acid (Folic Acid 1 Mg Tablet) 1 mg PO DAILY [facility] Last Admin: 11/20/22 08:36 Dose: 1 mg Haloperidol (Haloperidol 1 Mg Tablet) 2 mg PO BID PRN PRN Reason: agitation Last Admin: 11/17/22 20:05 Dose: 2 mg Hydroxyzine HCl (Hydroxyzine Hcl 25 Mg Tablet) 25 mg PO Q6H PRN PRN Reason: Anxiety Last Admin: 11/16/22 21:48 Dose: 25 mg Loratadine (Loratadine 10 Mg Tablet) 10 mg PO DAILY [facility] Last Admin: 11/20/22 08:36 Dose: 10 mg Lorazepam (Lorazepam 1 Mg Tablet) 1 mg PO TID PRN PRN Reason: anxiety Last Admin: 11/20/22 01:59 Dose: 1 mg Magnesium Hydroxide (Milk Of Magnesia 30 Ml Oral.Susp) 30 ml PO DAILY PRN PRN Reason: Constipation Magnesium Oxide (Magnesium Oxide 400 Mg Tablet) 400 mg PO DAILY [facility] Last Admin: 11/20/22 08:36 Dose: 400 mg Melatonin (Melatonin 3 Mg Tablet) 9 mg PO BEDTIME [facility] Last Admin: 11/19/22 21:20 Dose: 9 mg Metoprolol Tartrate (Metoprolol Tartrate 12.5 Mg Halftab) 12.5 mg PO TID [facility]; Protocol Last Admin: 11/20/22 08:59 Dose: Not Given Multivitamins/Vitamin C (Multivitamin Tablet) 1 tab PO DAILY [facility] Last Admin: 11/20/22 08:36 Dose: 1 tab Naltrexone HCl (Naltrexone Hcl 50 Mg Tablet) 50 mg PO DAILY [facility] Last Admin: 11/20/22 08:36 Dose: 50 mg Pt Own (Excedrin (Migraine)) 2 tab PO DAILY PRN PRN Reason: migraine Last Admin: 11/18/22 11:37 Dose: 2 tab Pt Own (Milk Thistle (250 Mg Capsule)) 250 mg PO BID [facility] Last Admin: 11/20/22 08:44 Dose: 250 mg Ondansetron HCl (Ondansetron Odt 8 Mg Tab.Rapdis) 8 mg TRANSLINGU Q12H PRN PRN Reason: Nausea Last Admin: 11/16/22 21:48 Dose: 8 mg Prednisone (Prednisone 10 Mg Tablet) 10 mg PO DAILY [facility] Last Admin: 11/20/22 08:36 Dose: 10 mg Thiamine HCl (Thiamine Hcl 100 Mg Tablet) 100 mg PO DAILY [facility] Last Admin: 11/20/22 08:36 Dose: 100 mg Trazodone HCl (Trazodone Hcl 100 Mg Tablet) 200 mg PO BEDTIME [facility] Last Admin: 11/19/22 21:20 Dose: 200 mg Allergies Allergies Allergy/AdvReac Type Severity Reaction Status Date / Time No Known Allergies Allergy Verified 11/15/22 01:16 Assessment & Plan Assessment & Plan (1) PTSD (post-traumatic stress disorder): Status: Acute Code(s): F43.10 - Post-traumatic stress disorder, unspecified (2) Recurrent major depression-severe: Status: Acute Code(s): F33.2 - Major depressive disorder, recurrent severe without psychotic features (3) Alcohol use disorder, severe, dependence: Status: Acute Code(s): F10.20 - Alcohol dependence, uncomplicated Plan 37 yo female, history of PTSD, recurrent major depression, ADHD, alcohol use disorder, s/p use of rubbing alcohol in a questionable suicide attempt after she and boyfriend had been living in his truck for a few weeks. Long hx of alcohol dependence, recent discharge after Section 35. Plan: TSH, B12, Folate Lipid panel, A1C Continue current regime Referral to senior living treatment if possible. Pt is in agreement. She reports family will be able to fund this for her. 11/16/22 Continue current plan and regime. 11/17/22 Continue current plan and regime. 11/19/22 TDN in effect. Has applied to [facility] for admit. Looking at application to [place] addiction residential treatment and has initiated a call to them. Change Flexeril to prn Capsaicin prn 11/20 retracted 3 day. continue tx. Reason for continued inpatient stay Substantial Risk for: inability to function Time Spent With Patient Time: Total time managing care of this patient today ____ minutes.
[2022-11-20] MEDS: Capsaicin 0.025% Cream 60 GM TUBE 1 APPL TOPICAL ×2 (13:26→19:50)
[2022-11-20] MEDS: Metoprolol Tartrate 12.5 MG HALFTAB PO ×2 (15:09→19:31)
[2022-11-20 15:20] VITALS: BP 118/74
[2022-11-20] MEDS: traZODone HCL 100 MG TABLET 200 MG PO (19:31)
[2022-11-20] MEDS: Melatonin 3 MG TABLET 9 MG PO (19:31)
[2022-11-21 08:20] VITALS: BP 127/80; PULSE 107; RESP 18; TEMP 36.3; O2SAT 100
[2022-11-21] MEDS: predniSONE 10 MG TABLET PO (08:44)
[2022-11-21] MEDS: Naltrexone HCl 50 MG TABLET PO (08:44)
[2022-11-21] MEDS: Thiamine HCL 100 MG TABLET PO (08:44)
[2022-11-21] MEDS: Multivitamin TABLET 1 TAB PO (08:44)
[2022-11-21] MEDS: Loratadine 10 MG TABLET PO (08:44)
[2022-11-21] MEDS: Magnesium Oxide 400 MG TABLET PO (08:44)
[2022-11-21] MEDS: Metoprolol Tartrate 12.5 MG HALFTAB PO ×3 (08:45→20:58)
[2022-11-21] MEDS: Folic Acid 1 MG TABLET PO (08:45)
[2022-11-21] MEDS: Amphetamine Mixed Salts 20 MG TABLET PO ×3 (08:45→16:08)
[2022-11-21] MEDS: Amphetamine Mixed Salts 10 MG TABLET PO ×3 (08:47→16:08)
[2022-11-21] MEDS: Cyclobenzaprine HCl 10 MG TABLET PO ×2 (09:14→21:21)
[2022-11-21] MEDS: Capsaicin 0.025% Cream 60 GM TUBE 1 APPL TOPICAL ×2 (09:15→21:00)
[2022-11-21 14:21] VITALS: BP 119/75; PULSE 102
[2022-11-21] MEDS: LORazepam 1 MG TABLET PO (14:51)
--- NOTE | 2022-11-21 16:41 | HO.PSYCHPN ---
Subjective Subjective Date of Service: 11/21/22 Reason For Visit: F33.3,F10.20,F43.10, F41.9 Subjective Notes: Conditional Voluntary Healthcare Proxy: No Guardianship: No Medical Problems Affecting Mental Status: No Interim History: Preparing for discharge. Reports some anxiety, although she has stayed with respite before. Concerned about where their truck is being held and costs to remove it from storage. Making calls to program, will meet with [facility] and PCP this week. Organized, structured. Discussed her work here, not very process oriented, but task oriented, I can only do it this way. Pt is aware we are available to her in the future as needed. She understands the severity of this illness and understands what she needs to do to maintain. She is aware of resources and aware of how to access resources. Medication Compliance: Yes Side effects from medications: No Attending Groups: Intermittent Review of Systems Acute medical concerns: No Medical Review of Systems: unchanged Mental Status Exam Mental Status Exam Patient Appearance: Appropriate Patient Orientation: Person, Place, Time and Situation Level of Consciousness: Alert Patient Behavior: Appropriate, Talkative and Good Eye Contact Mood Description: Anxious and Apprehensive Affect Description: Anxious and Apprehensive Patient Cognition Impaired: No Ability to Follow Directions: Fair Speech Pattern: Spontaneous Speech Memory Description: Intact Diagnostics Vital Signs (24Hr): Vital Signs - 24 hr 11/21/22 08:20 11/21/22 14:21 Temperature 97.3 F Pulse Rate 107 H 102 H Respiratory Rate 18 Blood Pressure 127/80 119/75 Pulse Oximetry 100 Oxygen Delivery Method Room Air BMI result Body Mass Index 22.7 Labs 11/16/22 08:17 Medications Medications Current Medications Acetaminophen (Acetaminophen 325 Mg Tablet) 650 mg PO Q6H PRN PRN Reason: Headache/Pain Mild Scale (1-3) Last Admin: 11/20/22 04:38 Dose: 650 mg Al Hydroxide/Mg Hydroxide (Magnesium Hydrox/Alum Hydrox 30 Ml Oral.Susp) 30 ml PO Q6H PRN PRN Reason: Heartburn/Nausea Amphetamine/Dextroamphetamine (Amphetamine Mixed Salts 20 Mg Tablet) 20 mg PO TID@0800,1200,1600 [facility] Last Admin: 11/21/22 16:08 Dose: 20 mg Amphetamine/Dextroamphetamine (Amphetamine Mixed Salts 10 Mg Tablet) 10 mg PO TID@0800,1200,1600 [facility] Last Admin: 11/21/22 16:08 Dose: 10 mg Capsaicin (Capsaicin 0.025% Cream 60 Gm Tube) 1 appl TOPICAL QID PRN; Protocol PRN Reason: Pain, Mild (Pain Scale 1-3) Last Admin: 11/21/22 09:15 Dose: 1 appl Cyclobenzaprine HCl (Cyclobenzaprine Hcl 10 Mg Tablet) 10 mg PO TID PRN PRN Reason: spasm Last Admin: 11/21/22 09:14 Dose: 10 mg Diphenhydramine HCl (Diphenhydramine Hcl 25 Mg Capsule) 50 mg PO BEDTIME PRN PRN Reason: Insomnia Last Admin: 11/19/22 21:20 Dose: 50 mg Folic Acid (Folic Acid 1 Mg Tablet) 1 mg PO DAILY [facility] Last Admin: 11/21/22 08:45 Dose: 1 mg Haloperidol (Haloperidol 1 Mg Tablet) 2 mg PO BID PRN PRN Reason: agitation Last Admin: 11/17/22 20:05 Dose: 2 mg Hydroxyzine HCl (Hydroxyzine Hcl 25 Mg Tablet) 25 mg PO Q6H PRN PRN Reason: Anxiety Last Admin: 11/16/22 21:48 Dose: 25 mg Lidocaine (Lidocaine 4 % Patch Adh..Patch) 1 patch TRANSDERMA DAILY PRN; Protocol PRN Reason: Pain, Moderate(Pain Scale 4-6) Loratadine (Loratadine 10 Mg Tablet) 10 mg PO DAILY [facility] Last Admin: 11/21/22 08:44 Dose: 10 mg Lorazepam (Lorazepam 1 Mg Tablet) 1 mg PO TID PRN PRN Reason: anxiety Last Admin: 11/21/22 14:51 Dose: 1 mg Magnesium Hydroxide (Milk Of Magnesia 30 Ml Oral.Susp) 30 ml PO DAILY PRN PRN Reason: Constipation Magnesium Oxide (Magnesium Oxide 400 Mg Tablet) 400 mg PO DAILY [facility] Last Admin: 11/21/22 08:44 Dose: 400 mg Melatonin (Melatonin 3 Mg Tablet) 9 mg PO BEDTIME [facility] Last Admin: 11/20/22 19:31 Dose: 9 mg Metoprolol Tartrate (Metoprolol Tartrate 12.5 Mg Halftab) 12.5 mg PO TID [facility]; Protocol Last Admin: 11/21/22 14:21 Dose: 12.5 mg Multivitamins/Vitamin C (Multivitamin Tablet) 1 tab PO DAILY [facility] Last Admin: 11/21/22 08:44 Dose: 1 tab Naltrexone HCl (Naltrexone Hcl 50 Mg Tablet) 50 mg PO DAILY [facility] Last Admin: 11/21/22 08:44 Dose: 50 mg Pt Own (Excedrin (Migraine)) 2 tab PO DAILY PRN PRN Reason: migraine Last Admin: 11/21/22 08:50 Dose: 2 tab Pt Own (Milk Thistle (250 Mg Capsule)) 250 mg PO BID [facility] Last Admin: 11/21/22 09:15 Dose: 250 mg Ondansetron HCl (Ondansetron Odt 8 Mg Tab.Rapdis) 8 mg TRANSLINGU Q12H PRN PRN Reason: Nausea Last Admin: 11/16/22 21:48 Dose: 8 mg Prednisone (Prednisone 10 Mg Tablet) 10 mg PO DAILY [facility] Last Admin: 11/21/22 08:44 Dose: 10 mg Thiamine HCl (Thiamine Hcl 100 Mg Tablet) 100 mg PO DAILY [facility] Last Admin: 11/21/22 08:44 Dose: 100 mg Trazodone HCl (Trazodone Hcl 100 Mg Tablet) 200 mg PO BEDTIME [facility] Last Admin: 11/20/22 19:31 Dose: 200 mg Allergies Allergies Allergy/AdvReac Type Severity Reaction Status Date / Time No Known Allergies Allergy Verified 11/15/22 01:16 Assessment & Plan Assessment & Plan (1) PTSD (post-traumatic stress disorder): Status: Acute Code(s): F43.10 - Post-traumatic stress disorder, unspecified (2) Recurrent major depression-severe: Status: Acute Code(s): F33.2 - Major depressive disorder, recurrent severe without psychotic features (3) Alcohol use disorder, severe, dependence: Status: Acute Code(s): F10.20 - Alcohol dependence, uncomplicated Plan 37 yo female, history of PTSD, recurrent major depression, ADHD, alcohol use disorder, s/p use of rubbing alcohol in a questionable suicide attempt after she and boyfriend had been living in his truck for a few weeks. Long hx of alcohol dependence, recent discharge after Section 35. Plan: TSH, B12, Folate Lipid panel, A1C Continue current regime [facility]erral [facility]. Pt is in agreement. She reports family will be able to fund this for her. 11/16/22 Continue current plan and regime. 11/17/22 Continue current plan and regime. 11/19/22 TDN in effect. Has applied to [facility] for admit. Looking at application to [place] addiction residential treatment and has initiated a call to them. Change Flexeril to prn Capsaicin prn 11/20 retracted 3 day. continue tx. 11/21 Plans discharge 11/22 Patient educated on: substance abuse and therapeutic strategies Informed Consent: understands Reason for continued inpatient stay Substantial Risk for: rapid decompensation Time Spent With Patient Time: Total time managing care of this patient today ____ minutes.
[2022-11-21 20:55] VITALS: BP 139/94; PULSE 78; RESP 18; TEMP 36.6
[2022-11-21] MEDS: traZODone HCL 100 MG TABLET 200 MG PO (20:58)
[2022-11-21] MEDS: Melatonin 3 MG TABLET 9 MG PO (20:58)
[2022-11-21] MEDS: diphenhydrAMINE HCL 25 MG CAPSULE 50 MG PO (21:21)
[2022-11-22] MEDS: Ondansetron ODT 8 MG TAB.RAPDIS TRANSLINGU (03:03)
[2022-11-22] MEDS: LORazepam 1 MG TABLET PO ×2 (03:04→11:20)
[2022-11-22] MEDS: Amphetamine Mixed Salts 10 MG TABLET PO ×2 (08:27→11:21)
[2022-11-22] MEDS: Metoprolol Tartrate 12.5 MG HALFTAB PO (08:28)
[2022-11-22] MEDS: Amphetamine Mixed Salts 20 MG TABLET PO ×2 (08:28→11:21)
[2022-11-22] MEDS: Magnesium Oxide 400 MG TABLET PO (08:28)
[2022-11-22] MEDS: Folic Acid 1 MG TABLET PO (08:29)
[2022-11-22] MEDS: predniSONE 10 MG TABLET PO (08:29)
[2022-11-22] MEDS: Naltrexone HCl 50 MG TABLET PO (08:29)
[2022-11-22] MEDS: Multivitamin TABLET 1 TAB PO (08:29)
[2022-11-22] MEDS: Thiamine HCL 100 MG TABLET PO (08:29)
[2022-11-22] MEDS: Loratadine 10 MG TABLET PO (08:29)
[2022-11-22] MEDS: Acetaminophen 325 MG TABLET 650 MG PO (08:34)
[2022-11-22 08:35] VITALS: BP 120/84; PULSE 82; RESP 18; TEMP 36.1; O2SAT 100
[2022-11-22] MEDS: Capsaicin 0.025% Cream 60 GM TUBE 1 APPL TOPICAL (08:35)
--- NOTE | 2022-11-22 17:22 | PM.PSYDC ---
DS: Providers Provider Date of Service: 11/22/22 Date of admission: 11/15/22 00:11 Date of discharge: 11/22/22 Primary care physician: Unknown Physician Admitting clinician: Mercy Perrin Attending physician on admission: Lawrence Diana Consults: 11/15/22 00:29 Consult to Hospitalist Routine Comment: Consulting Provider: Hospitalist Reason For Exam: OSH admission 11/15/22 11:43 Addiction Medicine Routine Consulting Provider: Addiction Covering Reason for consultation: s/p section 35 Has provider been notified: No 11/21/22 12:26 Addiction Medicine Routine Consulting Provider: Addiction Covering Reason for consultation: Pt asks to discuss sublocade initiation Has provider been notified: No Attending physician on discharge: Lawrence Diana Discharging clinician: Mercy Perrin DS: Diagnosis Discharge Diagnosis (1) PTSD (post-traumatic stress disorder): Status: Acute (2) Recurrent major depression-severe: Status: Acute (3) Alcohol use disorder, severe, dependence: Status: Acute DS: Medications Discharge Medications Home Medications: Home Medications Medication Instructions Recorded Confirmed prednisone 10 mg tablet 10 mg PO DAILY 11/15/22 11/15/22 Previous Rx's Medication Instructions Recorded Excedrin 2 tab PO DAILY PRN ##0 11/22/22 Milk Thistle 250 mg PO BID ##0 11/22/22 capsaicin 0.025 % topical cream 1 appl topical QID PRN Pain, Mild 11/22/22 (Pain Scale 1-3) #1 units cetirizine 10 mg tablet 10 mg PO DAILY #14 tabs 11/22/22 cyclobenzaprine 10 mg tablet 10 mg PO TID PRN spasms #21 tabs 11/22/22 dextroamphetamine-amphetamine 30 1 tab PO TID #90 tabs 11/22/22 mg tablet diphenhydramine HCl 25 mg capsule 50 mg (2 x 25 mg) PO BEDTIME PRN 11/22/22 Insomnia #14 caps folic acid 1 mg tablet 1 mg PO DAILY #30 tabs 11/22/22 hydroxyzine HCl 25 mg tablet 25 mg PO Q6H PRN Anxiety #30 tabs 11/22/22 lidocaine 4 % topical patch 1 patch transdermal DAILY PRN 11/22/22 (Lidocaine Pain Relief) Pain, Moderate(Pain Scale 4-6) #14 ea lorazepam 1 mg tablet 1 mg PO TID PRN anxiety #14 tabs 11/22/22 magnesium oxide 400 mg (241.3 mg 400 mg PO DAILY #30 tabs 11/22/22 magnesium) tablet melatonin 3 mg tablet 9 mg (3 x 3 mg) PO BEDTIME #90 tabs 11/22/22 metoprolol succinate 25 mg 12.5 mg (1/2 x 25 mg) PO TID #20 11/22/22 tablet,extended release 24 hr tabs (Toprol XL) multivitamin 1 tab PO DAILY #30 tabs 11/22/22 naltrexone 50 mg tablet 50 mg PO QAM #30 tabs 11/22/22 ondansetron 8 mg disintegrating 8 mg PO Q8H PRN Nausea #14 tabs 11/22/22 tablet pantoprazole 20 mg tablet,delayed 20 mg PO DAILY #30 tabs 11/22/22 release thiamine mononitrate (vit B1) 100 100 mg PO DAILY #30 tabs 11/22/22 mg tablet trazodone 150 mg tablet 150 mg PO BEDTIME #14 tabs 11/22/22 Mental Status Exam Mental Status Exam Patient Appearance: Appropriate Patient Orientation: Person, Place, Time and Situation Level of Consciousness: Alert Patient Behavior: Appropriate, Talkative and Good Eye Contact Mood Description: Anxious and Apprehensive Affect Description: Anxious and Apprehensive Patient Cognition Impaired: No Ability to Follow Directions: Fair Speech Pattern: Spontaneous Speech Memory Description: Intact Data Data Completed and Pending Completed studies during hospitalization [Text1]: 11/16/22 11/16/22 11/16/22 08:17 08:39 21:46 Sodium 138 Potassium 3.7 Chloride 103 Carbon Dioxide 24 Anion Gap 15 BUN 10 Creatinine 0.69 Estim Creat Clear Calc 105.5 Estimated GFR > 60 POC Glucose 128 H Fasting Glucose 77 Estimat Average Glucose 85 Hemoglobin A1c % 4.6 Calcium 9.7 Total Bilirubin 0.9 AST 14 ALT 9 Alkaline Phosphatase 60 Total Protein 7.4 Albumin 4.5 Triglycerides 121 Cholesterol 201 H LDL Cholesterol, Calc 86 HDL Cholesterol 91 Vitamin B12 350 Folate 13.4 TSH 0.93 Free T4 0.90 DS: Summary Hospital Course Hospital Course: Admission to adult psychiatry for exacerbation of alcohol use disorder, PTSD, depression. Pt medically admitted to [facility] after being found in boyfriend's truck, possibly having drank rubbing alcohol. Boyfriend, who has schizoaffective disorder per pt report, was arrested and incarcerated. Pt reports a long history of alcohol use, having served a few Section 35 sentences along with several treatment programs. During her medical stay she was diagnosed with an autoimmune issue, started on Prednisone and will see a specialist 12/06 for further treatment planning. Pt declined medication intervention, keeping to her regime prior to admission. She was an active participant in the milieu and was active in seeking out patient resources for discharge. She filed and retracted three day notices, with concern about another Section 35 as they have not been helpful in the past. She discharges to respite in [place], to [facility], to [facility] Ruffin for consultation, to PCP Colby Frankel for ongoing psychopharmacolgy and will have a psychotherapy intake with [facility]. Status at Discharge Functional status at discharge: independent ambulation Overall status at discharge: patient is progressing back to baseline Time Spent with Patient Time attestation: Total time managing care of this patient today ____ minutes. Time spent: Greater than 30 minutes Discharge Plan Discharge Anticipated Discharge Date/Time: 11/22/22 12:51 Patient Disposition: Xfer to Respite Facility Discharge Diagnosis: PTSD Recurrent Major Depression Alcohol Use Disorder, Severe, Dependence Referrals: Josue Ruffin [Other] - 11/23/22 2:30 pm [facility] [Other] - 11/23/22 10:00 am (Zoom) [facility] Open [facility] Therapy Intake [Other] - 11/24/22 10:30 am (Walk-in Hours 10-12 M-F ) [facility] PCP Colby Frankel [Other] - 11/28/22 1:30 pm Discharge Medications: New diphenhydramine HCl 25 mg Capsule 50 mg PO BEDTIME PRN (Reason: Insomnia) Qty: 14 0RF hydroxyzine HCl 25 mg Tablet 25 mg PO Q6H PRN (Reason: Anxiety) Qty: 30 0RF lorazepam 1 mg Tablet 1 mg PO TID PRN (Reason: anxiety) Qty: 14 0RF lidocaine [Lidocaine Pain Relief] 4 % Adhesive Patch,Medicated 1 patch transdermal DAILY PRN (Reason: Pain, Moderate(Pain Scale 4-6)) Qty: 14 0RF Protocol: Apply to: Apply to: lower back melatonin 3 mg Tablet 9 mg PO BEDTIME Qty: 90 0RF magnesium oxide 400 mg (241.3 mg magnesium) Tablet 400 mg PO DAILY Qty: 30 0RF capsaicin 0.025 % Cream 1 appl topical QID PRN (Reason: Pain, Mild (Pain Scale 1-3)) Qty: 1 2RF Protocol: Apply to: Apply to: affected areas thiamine mononitrate (vit B1) 100 mg Tablet 100 mg PO DAILY Qty: 30 0RF Excedrin 2 tab PO DAILY PRNQty: 0 0RF Milk Thistle 250 mg PO BID Qty: 0 0RF metoprolol succinate [Toprol XL] 25 mg tablet extended release 24 hr 12.5 mg PO TID Qty: 20 0RF cyclobenzaprine 10 mg tablet 10 mg PO TID PRN (Reason: spasms) Qty: 21 0RF Continued multivitamin Tablet 1 tab PO DAILY Qty: 30 0RF cetirizine 10 mg tablet 10 mg PO DAILY Qty: 14 0RF naltrexone 50 mg tablet 50 mg PO QAM Qty: 30 0RF ondansetron 8 mg Tablet,Disintegrating 8 mg PO Q8H PRN (Reason: Nausea) Qty: 14 0RF pantoprazole 20 mg tablet,delayed release (DR/EC) 20 mg PO DAILY Qty: 30 0RF dextroamphetamine-amphetamine 30 mg tablet 1 tab PO TID Qty: 90 0RF trazodone 150 mg tablet 150 mg PO BEDTIME Qty: 14 0RF folic acid 1 mg Tablet 1 mg PO DAILY Qty: 30 0RF prednisone 10 mg tablet 10 mg PO DAILY Qty: 10 0RF Discontinued cyclobenzaprine 5 mg tablet 5 mg PO TID [place] 3 Capsule 1,000 mg PO DAILY Discharge Orders: Discharge Order (Routine); Ordered 11/22/22 Ordered By: Mercy Perrin Diet: Advance to usual diet Activity on Discharge: As tolerated Stand Alone Forms: Patient Portal Discharge page, [facility] Care Plan Goals: Work on sobriety Mood and Behavioral Stabilization Health Concerns: Sobriety Mood and Behavioral Stabilization Plan of Treatment: Attend scheduled appointments Take medications as directed Assessment: Non suicidal, non homicidal, non psychotic, non manic Discharge Date/Time: 11/22/22 11:32
== END 2022-11-22 11:32 | DRG 751 ==
PROVIDERS: Psychiatry & Neurology Psychiatry; Admitting Provider Psychiatry & Neurology Psychiatry; Visit Provider Clinical Nurse Specialist Psychiatric/Mental Health, Adult
DX: F33.2 Major depressive disorder, recurrent severe without psychotic features (principal); R45.851 Suicidal ideations; F10.20 Alcohol dependence, uncomplicated; F43.10 Post-traumatic stress disorder, unspecified; F17.210 Nicotine dependence, cigarettes, uncomplicated; K21.9 Gastro-esophageal reflux disease without esophagitis; F90.9 Attention-deficit hyperactivity disorder, unspecified type; Z71.6 Tobacco abuse counseling; Z59.02 Unsheltered homelessness; Z79.899 Other long term (current) drug therapy
CPT/HCPCS: 36415; 80053; 80061; 82607; 82746; 82947; 83036; 84439; 84443; 93005

== ENCOUNTER → 2022-11-15 00:11 | Outpatient (BNV) | payer OTHER, SELFPAY | PROVIDERS: Admitting Provider Psychiatry & Neurology Psychiatry; Visit Provider Student in an Organized Health Care Education/Training Program | DX: H92.03 Otalgia, bilateral (principal); K08.89 Other specified disorders of teeth and supporting structures | CPT/HCPCS: 99221; 99499 ==

== ENCOUNTER → 2022-11-15 00:11 | Outpatient (BNV) | payer OTHER, SELFPAY | PROVIDERS: Admitting Provider Psychiatry & Neurology Psychiatry; Visit Provider Clinical Nurse Specialist Psychiatric/Mental Health, Adult | DX: F33.2 Major depressive disorder, recurrent severe without psychotic features (principal); F10.20 Alcohol dependence, uncomplicated; F43.11 Post-traumatic stress disorder, acute | CPT/HCPCS: 99231; 99232; 99239 ==